=== PATIENT | male | born 1995 | race Caucasian/White ===

== ENCOUNTER → 2016-08-13 | Emergency (ER) | payer BC, OTHER ==
[~2016-08-13] VITALS: Ht 172.7 cm; Wt 90.7 kg
[~2016-08-13] MED LIST: AZIT-21 PO; DAPS25TA2 PO; NS IV 1000 ML 1,000 ML IV SCH; SULF1TAB35 PO
--- NOTE | 2016-08-13 14:48 | ED Neurological Problem ---
General Chief Complaint: Neurological Problems Stated Complaint: POSS SEIZURE Source: patient Exam Limitations: no limitations History of Present Illness Time seen by provider: 14:44 Initial Comments To ER by family and friends with reports of possible seizure. Patient states that he has had 2-3 seizures previously throughout the course of his lifetime but they are infrequent he is not on any medication for these. He does not have regular doctor. Today he was riding as a passenger in the car going to [place]. On the way there, the day haul or farm charter bus driver of the car states that he stiffened up and then began to shake and "foaming at the mouth". At this time patient states his little tired but otherwise feels fine and he felt fine this morning. Timing/Duration: 1-3 hours Severity: mild Associated Symptoms: No confusion Allergies and Home Medications Allergies Coded Allergies: No Known Drug Allergies (Unverified , 05/26/10) Home Medications Dapsone 25 Mg Tablet, 50 MG PO BID, #20 Ref 0 Prescribed by: KELLEN RICKS on 12/17/142200 Sulfamethoxazole/Trimethoprim 1 Each Tablet, 1 EACH PO BID, #2 Ref 0 Prescribed by: KELLEN RICKS on 12/17/142200 Constitutional: see HPI Eyes: No Symptoms Reported Ears, Nose, Mouth, Throat: no symptoms reported Respiratory: no symptoms reported Cardiovascular: no symptoms reported Genitourinary: no symptoms reported Musculoskeletal: no symptoms reported Skin: no symptoms reported, see HPI Psychiatric/Neurological: See HPI, Tonic Clonic Seizures Endocrine: No Symptoms Reported Past [id number] Hx Patient Social History Recent Foreign Travel: No Contact w/Someone Who Travel: No Seasonal Allergies Seasonal Allergies: No Surgeries HX Surgeries: No Respiratory Hx Respiratory Disorders: No Cardiovascular Hx Cardiac Disorders: No Neurological Hx Neurological Disorders: No Genitourinary Hx Genitourinary Disorders: No Gastrointestinal Hx Gastrointestinal Disorders: No Musculoskeletal Hx Musculoskeletal Disorders: No Endocrine Hx Endocrine Disorders: No HEENT HX ENT Disorders: No Cancer Hx Cancer: No Psychosocial Hx Psychiatric Problems: No Integumentary HX Skin/Integumentary Disorder: No Blood Transfusions Hx Blood Disorders: No Adverse Reaction to a Blood Tr: No Family Medical History Significant Family History: Asthma Family Medial History: Asthma Physical Exam Vital Signs Vital Sign - Last 12Hours 08/13/16 14:40 Temp 97.9 Pulse 79 Resp 18 B/P (MAP) 130/79 Pulse Ox 97 O2 Delivery Room Air Capillary Refill : General Appearance: WD/WN, no apparent distress HEENT: PERRL/EOMI, normal ENT inspection Neck: non-tender, full range of motion Respiratory: no respiratory distress, no accessory muscle use Gastrointestinal: normal bowel sounds, non tender, soft Extremities: normal range of motion, non-tender Neurologic/Psychiatric: alert, normal mood/affect, oriented x 3, other (alert without neurologic deficit, GCS 15. Pleasant. He is noted to be yawning quite frequently.) Crainal Nerves: normal hearing, normal speech, PERRL Skin: normal color, warm/dry Progress/Results/Core Measures Results/Orders Lab Results Laboratory Tests Test 08/13/16 14:41 Range/Units White Blood Count 11.3 H 4.3-11.0 10^3/uL Red Blood Count 5.14 4.35-5.85 10^6/uL Hemoglobin 15.4 13.3-17.7 G/DL Hematocrit 45 40-54 % Mean Corpuscular Volume 87 80-99 FL Mean Corpuscular Hemoglobin 30 25-34 PG Mean Corpuscular Hemoglobin Concent 34 32-36 G/DL Red Cell Distribution Width 12.9 10.0-14.5 % Platelet Count 252 130-400 10^3/uL Mean Platelet Volume 10.1 7.4-10.4 FL Neutrophils (%) (Auto) 44 42-75 % Lymphocytes (%) (Auto) 47 H 12-44 % Monocytes (%) (Auto) 9 0-12 % Eosinophils (%) (Auto) 0 0-10 % Basophils (%) (Auto) 0 0-10 % Neutrophils # (Auto) 4.9 1.8-7.8 X 10^3 Lymphocytes # (Auto) 5.3 H 1.0-4.0 X 10^3 Monocytes # (Auto) 1.0 0.0-1.0 X 10^3 Eosinophils # (Auto) 0.0 0.0-0.3 10^3/uL Basophils # (Auto) 0.1 0.0-0.1 10^3/uL Sodium Level 141 135-145 MMOL/L Potassium Level 3.8 3.6-5.0 MMOL/L Chloride Level 106 98-107 MMOL/L Carbon Dioxide Level 14 L 21-32 MMOL/L Anion Gap 21 H 5-14 MMOL/L Blood Urea Nitrogen 11 7-18 MG/DL Creatinine 1.29 0.60-1.30 MG/DL Estimat Glomerular Filtration Rate > 60 BUN/Creatinine Ratio 9 Glucose Level 109 H 70-105 MG/DL Calcium Level 9.3 8.5-10.1 MG/DL Total Bilirubin 0.6 0.1-1.0 MG/DL Aspartate Amino Transf (AST/SGOT) 55 H 5-34 U/L Alanine Aminotransferase (ALT/SGPT) 39 0-55 U/L Alkaline Phosphatase 99 40-136 U/L Total Protein 7.5 6.4-8.2 G/DL Albumin 4.8 H 3.2-4.5 G/DL Serum Alcohol < 10 <10 MG/DL My Orders Orders - AJAY SAMSON APRN Alcohol (08/13/16 14:43) Cbc With Automated Diff (08/13/16 14:43) Comprehensive Metabolic Panel (08/13/16 14:43) Ua Culture If Indicated (08/13/16 14:43) Drug Screen Stat (Urine) (08/13/16 14:43) Saline Lock/Iv-Start (08/13/16 14:43) Ct Head Wo (08/13/16 14:43) Ns Iv 1000 Ml (Sodium Chloride 0.9%) (08/13/16 15:45) Vital Signs/I&O Vital Sign - Last 12Hours 08/13/16 14:40 Temp 97.9 Pulse 79 Resp 18 B/P (MAP) 130/79 Pulse Ox 97 O2 Delivery Room Air Departure Impression Impression: Primary Impression: Seizure-like activity Disposition: 01 HOME, SELF-CARE Condition: Stable Departure-Patient Inst. Decision time for Depature: 15:46 Referrals: NO,LOCAL PHYSICIAN (PCP/Family) Primary Care Physician Patient Instructions: NO INSTRUCTIONS GIVEN Add. Discharge Instructions: 1. Return to ER for any concerns 2. Follow-up with your doctor next week. If you do not have a doctor list has been provided for you. You will need someone to clear you to resume driving activities. In the interim, no driving until you have been cleared as we would not want one of these episodes do occur while you're driving on highway speeds. All discharge instructions reviewed with patient and/or family. Voiced understanding. Work/School Note: Local Medical Staff Listing AJAY SAMSON APRN Aug 13, 2016 14:48
[2016-08-13 15:03] LABS: BASOPHILS # (AUTO) 0.1 10^3/uL (0.0-0.1); BASOPHILS % (AUTO) 0 % (0-10); EOSINOPHILS % (AUTO) 0 % (0-10); LYMPHOCYTES # (AUTO) 5.3 X 10^3 (1.0-4.0); LYMPHOCYTES % (AUTO) 47 % (12-44); MEAN CORPUSCULAR HEMOGLOBIN 30 PG (25-34); MEAN CORPUSCULAR HGB CONC 34 G/DL (32-36); MEAN CORPUSCULAR VOLUME 87 FL (80-99); MEAN PLATELET VOLUME 10.1 FL (7.4-10.4); MONOCYTES % (AUTO) 9 % (0-12); NEUTROPHILS # (AUTO) 4.9 X 10^3 (1.8-7.8); NEUTROPHILS % (AUTO) 44 % (42-75); PLATELET COUNT 252 10^3/uL (130-400); RED BLOOD COUNT 5.14 10^6/uL (4.35-5.85); RED CELL DISTRIBUTION WIDTH 12.9 % (10.0-14.5); WHITE BLOOD COUNT 11.3 10^3/uL (4.3-11.0)
--- NOTE | 2016-08-13 15:20 | Diagnostic Imaging Report ---
PROCEDURE: CT head without contrast. TECHNIQUE: Multiple contiguous axial images were obtained through the brain without the use of intravenous contrast. INDICATION: Seizure. There are no prior studies available for comparison. FINDINGS: There is no mass, shift to midline or hemorrhage to suggest an acute intracranial abnormality. The normal tentorial blush is noted. The ventricles are not abnormally dilated. The bone windows show no evidence for fracture or for destructive lesion. The orbits and sinuses were not visualized in their entirety. Where visualized, there is no acute abnormality. IMPRESSION: 1. There is no evidence for an acute intracranial abnormality. 2. If clinical concern regarding an underlying abnormality persists, then MRI would be recommended for further study. Dictated by: Dictated on workstation # [id number]
[2016-08-13 15:22] LABS: ALANINE AMINOTRANSFERASE 39 U/L (0-55); ALBUMIN 4.8 G/DL (3.2-4.5); ANION GAP 21 MMOL/L (5-14); ASPARTATE AMINO TRANSFERASE 55 U/L (5-34); BILIRUBIN,TOTAL 0.6 MG/DL (0.1-1.0); BLOOD UREA NITROGEN 11 MG/DL (7-18); BUN/CREATININE RATIO 9; CALCIUM 9.3 MG/DL (8.5-10.1); CARBON DIOXIDE 14 MMOL/L (21-32); CHLORIDE 106 MMOL/L (98-107); CREATININE SERUM 1.29 MG/DL (0.60-1.30); GFR ESTIMATED > 60; GLUCOSE 109 MG/DL (70-105); POTASSIUM 3.8 MMOL/L (3.6-5.0); SODIUM 141 MMOL/L (135-145); TOTAL PROTEIN 7.5 G/DL (6.4-8.2)
[2016-08-13 15:26] LABS: ALCOHOL < 10 MG/DL (<10)
[2016-08-13 16:04] LABS: BILIRUBIN,URINE NEGATIVE (NEGATIVE); KETONES,URINE 1+ (NEGATIVE); LEUKOCYTE ESTERASE ,URINE NEGATIVE (NEGATIVE); NITRITE,URINE NEGATIVE (NEGATIVE); PH,URINE 6.5 (5-9); PROTEIN,URINE 3+ (NEGATIVE); UROBILINOGEN,URINE NORMAL (NORMAL)
[2016-08-13 16:17] LABS: WBC,URINE 0-2 /HPF
[2016-08-13 16:18] LABS: SQUAMOUS EPITHELIAL CELL,UR RARE /HPF
[2016-08-13 17:34] VITALS: BP 107/54
== END | disposition home or self-care (01) ==
LOC: EDUNIT# 14:35 → ER 14:37
DX: R56.9 Unspecified convulsions (principal)
CPT/HCPCS: 36415; 70450; 80053; 80306; 80320; 81000; 85025; 96360

== ENCOUNTER → 2016-08-19 | Outpatient (CLI) | payer BC, OTHER ==
[~2016-08-19] MED LIST changes: -NS IV 1000 ML 1,000 ML IV SCH
--- NOTE | 2016-08-25 10:31 | OPERATIVE REPORT ---
DATE OF SERVICE: 08/19/2016 The patient is a 21-year-old male with complaints of episodes of eye fluttering, staring off especially with the bright lights. This study was requested to evaluate for epileptiform activity. The background rhythm consisted of 10-11 Hz, 50-70 microvolt and amplitude, bilaterally symmetrical over the vertex region which was reactive to eye opening. Intermixed was one episode of seizure activity. During the photic stimulation, the patient had eye flutter, slight head jerking and he was not responding to verbal commands. The seizure in the epileptiform activity initiated in the left temporal lobe. This lasted for about 10 seconds. The patient was awake, drowsy and asleep during this recording. Hyperventilation was performed and there was no build up diffuse or focal slow wave activity. Intermittent photic stimulation was done with flash frequencies and no photic driving response was seen. IMPRESSION: This EEG is within normal limits in awake and sleep states. The episode described above is suggestive of a seizure focus in the left temporal lobe. A clinical correlation is suggested. Job ID: [id number] DocumentID: [id number] Dictated Date: 08/25/2016 08:19:18 Edge Plugger Date: 08/25/2016 10:30:48 Dictated By: YAMILETH STEWART MD
== END ==
LOC: RT 09:12
PROVIDERS: ATTEND Family Medicine
DX: R56.9 Unspecified convulsions (principal)